=== PATIENT | female | born 1935 | race Asian ===

== ENCOUNTER 2019-04-01 11:43 | Inpatient (IN) | payer OTHER ==
[~2019-04-01] VITALS: Ht 152.4 cm; Wt 41.0 kg
[2019-04-01 12:18] LABS: BASOPHIL % 0.4 % (0-2); PLATELET COUNT 148 x10^3mcL (130-400); RED CELL DISTRIBUTION WIDTH 13.2 % (11.5-14.5)
[2019-04-01 12:19] LABS: CALCIUM 9.2 mg/dL (8.5-10.1); CARBON DIOXIDE 22.8 mmol/L (21-32); CHLORIDE SERUM 105 mmol/L (98-107); CREATININE SERUM 1.1 mg/dL (0.6-1.0); GLUCOSE SERUM 169 mg/dL (74-106); POTASSIUM SERUM 4.6 mmol/L (3.5-5.1); SODIUM SERUM 139 mmol/L (136-145)
[2019-04-01 12:24] LABS: ALKALINE PHOSPHATASE 72 U/L (46-116); ALT/SGPT 17 U/L (14-59); AST/SGOT 17 U/L (15-37); BILIRUBIN TOTAL 0.34 mg/dL (0.20-1.00); TOTAL PROTEIN, SERUM 7.5 g/dL (6.4-8.2)
[2019-04-01 12:28] LABS: ALBUMIN 3.1 g/dL (3.4-5.0)
[2019-04-01 15:39] LABS: CHOLESTEROL/HDL RATIO 3.5
[2019-04-01 17:30] LABS: microscopic required? YES; urine erythrocyte NEGATIVE (NEGATIVE)
[2019-04-01 20:26] VITALS: BP 201/71
[2019-04-01 20:36] VITALS: Ht 152.4 cm; Wt 41.0 kg
[2019-04-01 21:00] VITALS: BP 165/85
[2019-04-02 06:08] VITALS: BP 189/75
[2019-04-02 06:40] LABS: CARBON DIOXIDE 21.6 mmol/L (21-32); CREATININE SERUM 0.8 mg/dL (0.6-1.0); GLUCOSE SERUM 102 mg/dL (74-106); MAGNESIUM 1.8 mg/dL (1.8-2.4); PHOSPHOROUS 2.9 mg/dL (2.5-4.9)
[2019-04-02 07:21] VITALS: BP 183/72
[2019-04-02 07:50] LABS: CHLORIDE SERUM 109 mmol/L (98-107); POTASSIUM SERUM 3.8 mmol/L (3.5-5.1); SODIUM SERUM 141 mmol/L (136-145)
[2019-04-02 08:32] LABS: BASOPHIL % 0.3 % (0-2); RED CELL DISTRIBUTION WIDTH 13.3 % (11.5-14.5)
[2019-04-02 09:18] VITALS: BP 214/85
[2019-04-02 10:18] LABS: PLATELET COUNT 147 x10^3mcL (130-400)
[2019-04-02 16:31] VITALS: BP 146/91
[2019-04-02 21:56] VITALS: BP 133/95
[2019-04-02 22:47] VITALS: BP 130/79
[2019-04-03] VITALS (7 sets, daily range): BP systolic 149–197; BP diastolic 41–84
[2019-04-03 06:45] LABS: CALCIUM 7.5 mg/dL (8.5-10.1); CARBON DIOXIDE 23.1 mmol/L (21-32); CHLORIDE SERUM 106 mmol/L (98-107); CREATININE SERUM 0.8 mg/dL (0.6-1.0); GLUCOSE SERUM 122 mg/dL (74-106); MAGNESIUM 1.7 mg/dL (1.8-2.4); PHOSPHOROUS 2.4 mg/dL (2.5-4.9); POTASSIUM SERUM 3.9 mmol/L (3.5-5.1); SODIUM SERUM 137 mmol/L (136-145)
[2019-04-03 08:24] LABS: BASOPHIL % 0.4 % (0-2)
[2019-04-03 08:27] LABS: RED CELL DISTRIBUTION WIDTH 13.1 % (11.5-14.5)
[2019-04-03 08:57] LABS: PLATELET COUNT 99 x10^3mcL (130-400)
[2019-04-03 18:20] LABS: BASOPHIL % 0.2 % (0-2); RED CELL DISTRIBUTION WIDTH 13.6 % (11.5-14.5)
[2019-04-03 20:47] LABS: PLATELET COUNT 89 x10^3mcL (130-400)
[2019-04-04 00:40] VITALS: BP 143/49
[2019-04-04 06:13] VITALS: BP 107/56
[2019-04-04 06:39] LABS: CALCIUM 7.9 mg/dL (8.5-10.1); CARBON DIOXIDE 23.1 mmol/L (21-32); CHLORIDE SERUM 106 mmol/L (98-107); CREATININE SERUM 0.8 mg/dL (0.6-1.0); GLUCOSE SERUM 114 mg/dL (74-106); MAGNESIUM 1.9 mg/dL (1.8-2.4); PHOSPHOROUS 3.3 mg/dL (2.5-4.9); POTASSIUM SERUM 3.3 mmol/L (3.5-5.1); SODIUM SERUM 141 mmol/L (136-145)
[2019-04-04 06:41] VITALS: BP 161/61
[2019-04-04 08:24] LABS: PLATELET COUNT 214 x10^3mcL (130-400); RED CELL DISTRIBUTION WIDTH 13.4 % (11.5-14.5)
[2019-04-04 08:25] LABS: BASOPHIL % 1.3 % (0-2)
[2019-04-04 09:38] VITALS: BP 160/70
[2019-04-04 17:27] VITALS: BP 137/57
[2019-04-04 18:24] LABS: CALCIUM 7.7 mg/dL (8.5-10.1); CARBON DIOXIDE 22.9 mmol/L (21-32); CHLORIDE SERUM 108 mmol/L (98-107); GLUCOSE SERUM 158 mg/dL (74-106); SODIUM SERUM 142 mmol/L (136-145)
[2019-04-04 20:03] VITALS: BP 125/60
[2019-04-05] VITALS (8 sets, daily range): BP systolic 118–176; BP diastolic 48–78
[2019-04-05 06:53] LABS: BASOPHIL % 0.3 % (0-2); RED CELL DISTRIBUTION WIDTH 13.6 % (11.5-14.5)
[2019-04-05 07:00] LABS: CALCIUM 7.6 mg/dL (8.5-10.1); CARBON DIOXIDE 22.9 mmol/L (21-32); CHLORIDE SERUM 109 mmol/L (98-107); CREATININE SERUM 1.2 mg/dL (0.6-1.0); GLUCOSE SERUM 181 mg/dL (74-106); POTASSIUM SERUM 3.6 mmol/L (3.5-5.1); SODIUM SERUM 142 mmol/L (136-145)
[2019-04-05 09:23] LABS: PLATELET COUNT 192 x10^3mcL (130-400)
[2019-04-06] VITALS (7 sets, daily range): BP systolic 100–187; BP diastolic 52–97
[2019-04-06 06:47] LABS: CALCIUM 8.5 mg/dL (8.5-10.1); CARBON DIOXIDE 22.2 mmol/L (21-32); CHLORIDE SERUM 106 mmol/L (98-107); CREATININE SERUM 0.8 mg/dL (0.6-1.0); GLUCOSE SERUM 122 mg/dL (74-106); POTASSIUM SERUM 3.7 mmol/L (3.5-5.1); SODIUM SERUM 141 mmol/L (136-145)
[2019-04-06 06:55] LABS: BASOPHIL % 0.8 % (0-2); RED CELL DISTRIBUTION WIDTH 13.8 % (11.5-14.5)
[2019-04-06 09:15] LABS: PLATELET COUNT 70 x10^3mcL (130-400)
[2019-04-07 06:23] VITALS: BP 163/73
[2019-04-07 06:45] LABS: BASOPHIL % 0.1 % (0-2); RED CELL DISTRIBUTION WIDTH 13.7 % (11.5-14.5)
[2019-04-07 06:53] LABS: CARBON DIOXIDE 19.8 mmol/L (21-32); CHLORIDE SERUM 110 mmol/L (98-107); CREATININE SERUM 0.7 mg/dL (0.6-1.0); GLUCOSE SERUM 119 mg/dL (74-106); POTASSIUM SERUM 3.3 mmol/L (3.5-5.1); SODIUM SERUM 142 mmol/L (136-145)
[2019-04-07 07:26] LABS: PLATELET COUNT 47 x10^3mcL (130-400)
[2019-04-07 08:23] VITALS: BP 158/68
[2019-04-07 13:13] VITALS: BP 163/59
[2019-04-07 17:39] VITALS: BP 154/98
[2019-04-07 21:30] VITALS: BP 115/58
[2019-04-08 06:39] VITALS: BP 162/74
[2019-04-08 06:58] LABS: CALCIUM 7.9 mg/dL (8.5-10.1); CARBON DIOXIDE 22.3 mmol/L (21-32); CHLORIDE SERUM 111 mmol/L (98-107); CREATININE SERUM 0.7 mg/dL (0.6-1.0); GLUCOSE SERUM 110 mg/dL (74-106); POTASSIUM SERUM 3.7 mmol/L (3.5-5.1); SODIUM SERUM 143 mmol/L (136-145)
[2019-04-08 09:09] VITALS: BP 182/66
[2019-04-08 12:55] LABS: BASOPHIL % 0.3 % (0-2); PLATELET COUNT 156 x10^3mcL (130-400); RED CELL DISTRIBUTION WIDTH 13.5 % (11.5-14.5)
[2019-04-08 13:23] VITALS: BP 158/61
[2019-04-08 14:03] LABS: rbc morphology (normal/abnorm) ABNORMAL (NORMAL)
[2019-04-08 14:08] LABS: rbc morphology (normal/abnorm) ABNORMAL (NORMAL)
[2019-04-08 15:09] LABS: BASOPHIL % 0.3 % (0-2); RED CELL DISTRIBUTION WIDTH 13.8 % (11.5-14.5)
[2019-04-08 17:42] LABS: PLATELET COUNT 229 x10^3mcL (130-400)
[2019-04-08 17:43] LABS: rbc morphology (normal/abnorm) ABNORMAL (NORMAL)
[2019-04-08 18:09] VITALS: BP 162/78
[2019-04-08 21:35] VITALS: BP 147/70
[2019-04-09] VITALS (8 sets, daily range): BP systolic 136–185; BP diastolic 53–93
[2019-04-09 07:32] LABS: CALCIUM 7.9 mg/dL (8.5-10.1); CARBON DIOXIDE 15.2 mmol/L (21-32); CHLORIDE SERUM 109 mmol/L (98-107); CREATININE SERUM 0.7 mg/dL (0.6-1.0); GLUCOSE SERUM 72 mg/dL (74-106); POTASSIUM SERUM 3.8 mmol/L (3.5-5.1); SODIUM SERUM 139 mmol/L (136-145)
[2019-04-09 11:02] LABS: BASOPHIL % 0.2 % (0-2); PLATELET COUNT 326 x10^3mcL (130-400); RED CELL DISTRIBUTION WIDTH 13.1 % (11.5-14.5)
[2019-04-10] VITALS (8 sets, daily range): BP systolic 137–192; BP diastolic 53–79
[2019-04-10 06:10] LABS: RED CELL DISTRIBUTION WIDTH 13.6 % (11.5-14.5)
[2019-04-10 06:30] LABS: CALCIUM 8.2 mg/dL (8.5-10.1); CARBON DIOXIDE 21.4 mmol/L (21-32); CHLORIDE SERUM 110 mmol/L (98-107); CREATININE SERUM 0.7 mg/dL (0.6-1.0); GLUCOSE SERUM 154 mg/dL (74-106); MAGNESIUM 2.1 mg/dL (1.8-2.4); POTASSIUM SERUM 3.5 mmol/L (3.5-5.1); SODIUM SERUM 142 mmol/L (136-145)
[2019-04-10 09:12] LABS: PLATELET COUNT 322 x10^3mcL (130-400)
[2019-04-10 09:14] LABS: ATYPICAL LYMPH 0 %; BAND NEUTROPHIL 0 % (0-10); BASOPHIL 0 % (0-2); MONOCYTE 4 % (0-7); SEGMENTED NEUTROPHILS 80 % (37-75); rbc morphology (normal/abnorm) ABNORMAL (NORMAL)
[2019-04-10 09:15] LABS: PLATELET MORPHOLOGY PLATELETS INCREASED
[2019-04-11 05:14] VITALS: BP 176/67
[2019-04-11 06:13] LABS: CALCIUM 7.9 mg/dL (8.5-10.1); CARBON DIOXIDE 24.9 mmol/L (21-32); CHLORIDE SERUM 108 mmol/L (98-107); CREATININE SERUM 0.7 mg/dL (0.6-1.0); GLUCOSE SERUM 160 mg/dL (74-106); POTASSIUM SERUM 3.3 mmol/L (3.5-5.1); SODIUM SERUM 141 mmol/L (136-145)
[2019-04-11 07:24] LABS: PLATELET COUNT 145 x10^3mcL (130-400); RED CELL DISTRIBUTION WIDTH 13.7 % (11.5-14.5)
[2019-04-11 08:22] LABS: BAND NEUTROPHIL 1 % (0-10); BASOPHIL 0 % (0-2); MONOCYTE 11 % (0-7); SEGMENTED NEUTROPHILS 75 % (37-75)
[2019-04-11 08:23] LABS: rbc morphology (normal/abnorm) ABNORMAL (NORMAL)
[2019-04-11 08:25] LABS: PLATELET MORPHOLOGY MOD PLT CLUMPS SEEN
[2019-04-11 08:56] VITALS: BP 186/72
[2019-04-11 13:10] VITALS: BP 176/73
[2019-04-11 16:48] VITALS: BP 124/70
[2019-04-11 20:41] VITALS: BP 180/65
[2019-04-12 00:05] VITALS: BP 156/53
[2019-04-12 05:45] VITALS: BP 145/47
[2019-04-12 08:59] VITALS: BP 180/72
[2019-04-12] MEDS ORDERED: LEVOFLOXACIN500 M1 PO (11:13)
[2019-04-12 12:11] VITALS: BP 179/63
[2019-04-12 16:58] VITALS: BP 168/59
== END 2019-04-12 17:52 | disposition home health service (06) | DRG 480 ==
LOC: ED 11:43 → MU 15:18 → DU 15:18 → MU 20:04 → DU 04-02 11:08 → MU 04-05 12:12 → DU 04-05 12:49 → MU 04-10 11:15 → DU 04-10 12:40 → MU 04-12 17:25
PROVIDERS: Emergency Medicine; General Practice; Neuromusculoskeletal Medicine, Sports Medicine; ADMIT Internal Medicine
PROC: 30233R1 Transfusion of Nonautologous Platelets into Peripheral Vein, Percutaneous Approach (ICD-10-PCS; 2019-04-03)
PROC: 0QS604Z Reposition Right Upper Femur with Internal Fixation Device, Open Approach (ICD-10-PCS; principal; 2019-04-04 07:30)
PROC: 30233N1 Transfusion of Nonautologous Red Blood Cells into Peripheral Vein, Percutaneous Approach (ICD-10-PCS; 2019-04-05)
DX: S72.344A Nondisplaced spiral fracture of shaft of right femur, initial encounter for closed fracture (principal); N17.0 Acute kidney failure with tubular necrosis; J69.0 Pneumonitis due to inhalation of food and vomit; M97.01XA Periprosthetic fracture around internal prosthetic right hip joint, initial encounter; I69.351 Hemiplegia and hemiparesis following cerebral infarction affecting right dominant side; E44.1 Mild protein-calorie malnutrition; D62 Acute posthemorrhagic anemia; Z68.1 Body mass index [BMI] 19.9 or less, adult; I16.1 Hypertensive emergency; F03.90 Unspecified dementia, unspecified severity, without behavioral disturbance, psychotic disturbance, mood disturbance, and anxiety; R13.10 Dysphagia, unspecified; E78.5 Hyperlipidemia, unspecified; Z96.641 Presence of right artificial hip joint; Z91.81 History of falling; Z91.11 Patient's noncompliance with dietary regimen; Z53.29 Procedure and treatment not carried out because of patient's decision for other reasons; W07.XXXA Fall from chair, initial encounter; Y92.019 Unspecified place in single-family (private) house as the place of occurrence of the external cause
CPT/HCPCS: 83880; 86022; 92526-GN; 92610-GN; 97110-GP; 97116-GP; 97530-GP; G0378; J0360; J0610; J0690; J0696; J1200; J1644; J1940; J2060; J2270; J2704; J3010; J3480; J3490; J7030; J7040; J7050; J7120; P9016; P9035; Q0092; Q0163